=== PATIENT | male | born 2000 | race Caucasian/White ===

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

== ENCOUNTER 2019-04-30 21:01 | Emergency (ER) | payer MEDICAID, OTHER ==
[~2019-04-30] VITALS: Ht 172.7 cm; Wt 104.3 kg
--- NOTE | 2019-04-30 21:56 | NUR ---
BIBMOTHER. R ANKLE AND LOWER LEG PAIN WHILE PLAYING BASKETBALL. ANOTHER PLAYER LANDED ON LEG. PT STATES PAIN OF 4/10. REPORTS BEING ABLE TO PUT SOME PRESSURE, BUT DIFFICULTY WALKING. NO ACUTE DISTRESS NOTED. FAMILY AT BEDSIDE. READY FORE SELENE.
--- NOTE | 2019-04-30 22:07 | NUR ---
XRAY AT BEDSIDE
[2019-04-30] MEDS ORDERED: IBUPROFEN 400 MG TABLET ONE (22:20)
[2019-04-30] MEDS ORDERED: IBUPROFEN 400 MG TABLET PO ONE (22:30)
--- NOTE | 2019-04-30 23:45 | NUR ---
Patient discharged to home in stable condition. Written and verbal after care instructions given. Patient verbalizes understanding of instruction.
[2019-04-30 23:50] VITALS: BP 110/91
== END 2019-04-30 23:51 | disposition home or self-care (01) ==
LOC: ER 21:08
DX: S93.491A Sprain of other ligament of right ankle, initial encounter (principal); F84.0 Autistic disorder; G40.909 Epilepsy, unspecified, not intractable, without status epilepticus; W18.39XA Other fall on same level, initial encounter; Y93.67 Activity, basketball; Y92.89 Other specified places as the place of occurrence of the external cause; Y99.8 Other external cause status
CPT/HCPCS: 73610-TC

== ENCOUNTER 2019-06-25 17:53 | Emergency (ER) | payer OTHER, MEDICAID ==
[~2019-06-25] VITALS: Ht 180.3 cm; Wt 95.7 kg
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
--- NOTE | 2019-06-25 18:43 | NUR ---
WOUND CARE IN PROGRESS ON RT HAND. PT IS MEDICALLY CLEARED FOR BOOKING.
--- NOTE | 2019-06-25 18:44 | NUR ---
Patient discharged to [facility] in stable condition. Written and verbal after care instructions given. Patient verbalizes understanding of instruction. PT AMBULATED OUT WITH A STEADY GAIT.
--- NOTE | 2019-06-25 18:53 | NUR ---
PT AMBULATED OUT WITH A STEADY GAIT. PT IS IN HANDCUFFS.
[2019-06-25 19:00] VITALS: BP 118/74
== END 2019-06-25 19:00 ==
LOC: ER 17:58
DX: S30.850A Superficial foreign body of lower back and pelvis, initial encounter (principal); S60.221A Contusion of right hand, initial encounter; G40.909 Epilepsy, unspecified, not intractable, without status epilepticus; F32.9 Major depressive disorder, single episode, unspecified; Z88.8 Allergy status to other drugs, medicaments and biological substances; W45.8XXA Other foreign body or object entering through skin, initial encounter; Y93.89 Activity, other specified; Y92.89 Other specified places as the place of occurrence of the external cause; Y99.8 Other external cause status
CPT/HCPCS: 10120; 73130; 99284; A6403

== ENCOUNTER 2021-01-25 22:48 | Emergency (ER) | payer MEDICAID, OTHER ==
[~2021-01-25] VITALS: Ht 172.7 cm; Wt 99.8 kg
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
[2021-01-25] MEDS ORDERED: IBUPROFEN 400 MG TABLET ONE (23:19)
--- NOTE | 2021-01-25 23:22 | NUR ---
XRAY AT BEDSIDE
[2021-01-25] MEDS ORDERED: IBUPROFEN 400 MG TABLET PO ONE (23:30)
--- NOTE | 2021-01-25 23:40 | NUR ---
Patient discharged to home in stable condition. Written and verbal after care instructions given. Patient verbalizes understanding of instruction. Lft knee wrapped with CAROLE bandage. pt ambulatory with a steady gait
[2021-01-25 23:49] VITALS: BP 140/75
== END 2021-01-25 23:44 | disposition home or self-care (01) ==
LOC: ER 22:52
DX: S83.8X2A Sprain of other specified parts of left knee, initial encounter (principal); G40.909 Epilepsy, unspecified, not intractable, without status epilepticus; F32.9 Major depressive disorder, single episode, unspecified; Z88.8 Allergy status to other drugs, medicaments and biological substances; W18.39XA Other fall on same level, initial encounter; Y93.89 Activity, other specified; Y92.39 Other specified sports and athletic area as the place of occurrence of the external cause; Y99.8 Other external cause status
CPT/HCPCS: 73564-TC

== ENCOUNTER 2021-09-03 22:25 | Emergency (ER) | payer OTHER ==
[~2021-09-03] VITALS: Ht 175.3 cm; Wt 111.1 kg
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
[2021-09-03] MEDS ORDERED: KETOROLAC TROMETHAMINE INJ 30 MG/ML VIAL IM ONE (23:00)
[2021-09-03] MEDS ORDERED: KETOROLAC TROMETHAMINE INJ 30 MG/ML VIAL ONE (23:03)
--- NOTE | 2021-09-03 23:03 | NUR ---
DR. LAW OWENS AT PT'S BEDSIDE
[2021-09-03] MEDS ORDERED: LIDOCAINE 1%-EPI 1:100,000 20 ML VIAL ONE ×2 (23:10→23:47)
--- NOTE | 2021-09-03 23:59 | NUR ---
DR. LAW OWENS AT PT'S BEDSIDE FOR WOUND CARE
[2021-09-04] MEDS ORDERED: CLIN300C12 PO (00:15)
[2021-09-04 00:25] VITALS: BP 135/75
--- NOTE | 2021-09-04 00:26 | NUR ---
Patient discharged to home in stable condition. RX Written and verbal after care instructions given. Patient verbalizes understanding of instruction. IV removed. Catheter intact and site benign. Pressure and 4x4 applied to site. No bleeding noted.
== END 2021-09-04 00:26 | disposition home or self-care (01) ==
LOC: ER 22:30
DX: L02.212 Cutaneous abscess of back [any part, except buttock and flank] (principal); G40.909 Epilepsy, unspecified, not intractable, without status epilepticus; F32.A Depression, unspecified; F84.0 Autistic disorder; Z88.8 Allergy status to other drugs, medicaments and biological substances
CPT/HCPCS: 10060; 96372; 99284; A6403; A6407; J1885; J3490 ×2

== ENCOUNTER 2021-09-06 20:47 | Emergency (ER) | payer OTHER ==
[~2021-09-06] VITALS: Ht 172.7 cm; Wt 108.9 kg
[~2021-09-06 20:47] MED LIST: CLIN300C12 PO
[2021-09-06 20:58] VITALS: BP 141/92
--- NOTE | 2021-09-06 21:37 | NUR ---
Patient discharged to home in stable condition. Written and verbal after care instructions given. Patient verbalizes understanding of instruction.
== END 2021-09-06 21:39 | disposition home or self-care (01) ==
LOC: ER 20:53
DX: Z48.00 Encounter for change or removal of nonsurgical wound dressing (principal); F32.A Depression, unspecified; Z86.69 Personal history of other diseases of the nervous system and sense organs; Z87.19 Personal history of other diseases of the digestive system; Z88.8 Allergy status to other drugs, medicaments and biological substances; Z79.899 Other long term (current) drug therapy

== ENCOUNTER 2022-01-05 14:29 | Emergency (ER) | payer OTHER ==
[~2022-01-05] VITALS: Ht 172.7 cm; Wt 108.9 kg
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
--- NOTE | 2022-01-05 15:13 | NUR ---
CONTACTED SURGERY DR. SANTOS TO CALL US BACK.
--- NOTE | 2022-01-05 15:45 | NUR ---
BLOOD DRAWN AND TO LAB
[2022-01-05 16:13] LABS: BASOPHILS # (AUTO) 0.1 K/uL (0.0-0.2); BASOPHILS % (AUTO) 0.5 % (0.0-2.0); EOSINOPHILS % (AUTO) 0.7 % (0.0-6.0); HEMATOCRIT 45 % (39-51); HEMOGLOBIN 15.4 g/dL (13.5-17.5); LYMPHOCYTES # (AUTO) 2.2 K/uL (0.8-4.8); LYMPHOCYTES % (AUTO) 23.2 % (20.0-44.0); MEAN CORPUSCULAR HGB CONC 34 g/dl (31.0-36.0); MEAN CORPUSCULAR VOLUME 87 fL (80-96); MONOCYTES # (AUTO) 0.6 K/uL (0.1-1.30); MONOCYTES % (AUTO) 6.4 % (2.0-12.0); NEUTROPHILS # (AUTO) 6.7 K/uL (1.8-8.9); NEUTROPHILS % (AUTO) 69.2 % (43.0-81.0); PLATELET COUNT (AUTO) 249 K/uL (150-450); RED BLOOD CELL COUNT(AUTO) 5.19 MIL/uL (4.5-6.0); WHITE BLOOD COUNT (AUTO) 9.7 K/uL (4.3-11.0)
[2022-01-05] MEDS ORDERED: IV NS 0.9% 250 ML IV ONE (16:15)
[2022-01-05] MEDS ORDERED: IOHEXOL-300 100 ML VIAL IV ONE (16:15)
[2022-01-05 16:20] LABS: CALCIUM, SERUM 9.2 mg/dL (8.5-10.1); POTASSIUM 4.3 mmol/L (3.5-5.1)
[2022-01-05] MEDS ORDERED: LIDOCAINE 1% INJ 50 ML MDV IJ ONE (17:05)
[2022-01-05] MEDS ORDERED: AMOX/CLAVULANATE 875 MG TABLET PO ONE (17:30)
--- NOTE | 2022-01-05 17:30 | NUR ---
I&D DONE BY DR GILBERT WITH LIDOCAIN 1%
[2022-01-05] MEDS ORDERED: AMOX/CLAVULANATE 875 MG TABLET ONE (17:39)
[2022-01-05] MEDS ORDERED: AMOX-430 PO (17:46)
--- NOTE | 2022-01-05 18:00 | NUR ---
Patient discharged to home in stable condition. Written and verbal after care instructions given. Patient verbalizes understanding of instruction.
[2022-01-05 19:18] VITALS: BP 120/70
== END 2022-01-05 18:00 | disposition home or self-care (01) ==
LOC: ER 14:30
DX: L05.01 Pilonidal cyst with abscess (principal); K50.90 Crohn's disease, unspecified, without complications; F32.A Depression, unspecified; Z86.69 Personal history of other diseases of the nervous system and sense organs; Z88.8 Allergy status to other drugs, medicaments and biological substances
CPT/HCPCS: 10080; 99285; 74177; 85025; 80048; 36415; J3490; J7050; A6407; Q9967

== ENCOUNTER 2022-06-04 18:07 | Emergency (ER) | payer OTHER ==
[~2022-06-04] VITALS: Ht 172.7 cm; Wt 119.3 kg
[~2022-06-04 18:07] MED LIST changes: +AMOX-430 PO
[2022-06-04 18:46] VITALS: BP 126/73
--- NOTE | 2022-06-04 19:44 | NUR ---
Patient discharged to home in stable condition. Written and verbal after care instructions given. Patient verbalizes understanding of instruction.
== END 2022-06-04 20:17 | disposition home or self-care (01) ==
LOC: ER 18:12
DX: R07.89 Other chest pain (principal); R09.1 Pleurisy; F32.A Depression, unspecified; Z88.8 Allergy status to other drugs, medicaments and biological substances
CPT/HCPCS: 71045-TC

== ENCOUNTER 2022-12-15 18:23 | Emergency (ER) | payer OTHER ==
[~2022-12-15] VITALS: Ht 172.7 cm; Wt 79.4 kg
[~2022-12-15 18:23] MED LIST changes: +ACET-2605 PO
[2022-12-15 20:04] VITALS: BP 125/78; TEMP 98.3; O2SAT 98
== END 2022-12-15 20:00 | disposition home or self-care (01) ==
LOC: ER 18:23
DX: L05.01 Pilonidal cyst with abscess (principal); Z88.8 Allergy status to other drugs, medicaments and biological substances
CPT/HCPCS: 99282; A6403; A6407

== ENCOUNTER 2023-03-06 21:15 | Emergency (ER) | payer OTHER ==
[~2023-03-06] VITALS: Ht 172.7 cm; Wt 102.1 kg
[2023-03-06 21:51] VITALS: TEMP 98.5
[2023-03-06 23:10] LABS: BASOPHILS # (AUTO) 0.1 K/uL (0.0-0.2); BASOPHILS % (AUTO) 0.6 % (0.0-2.0); EOSINOPHILS # (AUTO) 0.1 K/uL (0.0-0.7); EOSINOPHILS % (AUTO) 0.8 % (0.0-6.0); HEMATOCRIT 48 % (39-51); HEMOGLOBIN 16.2 g/dL (13.5-17.5); LYMPHOCYTES # (AUTO) 2.3 K/uL (0.8-4.8); LYMPHOCYTES % (AUTO) 21.7 % (20.0-44.0); MEAN CORPUSCULAR HEMOGLOBIN 29 PG (26.0-33.0); MEAN CORPUSCULAR HGB CONC 34 g/dl (31.0-36.0); MEAN CORPUSCULAR VOLUME 86 fL (80-96); MONOCYTES # (AUTO) 0.6 K/uL (0.1-1.30); NEUTROPHILS # (AUTO) 7.6 K/uL (1.8-8.9); NEUTROPHILS % (AUTO) 70.9 % (43.0-81.0); PLATELET COUNT (AUTO) 278 K/uL (150-450); RED BLOOD CELL COUNT(AUTO) 5.58 MIL/uL (4.5-6.0); RED CELL DISTRIBUTION WIDTH 13.2 % (11.5-15.0); WHITE BLOOD COUNT (AUTO) 10.7 K/uL (4.3-11.0)
[2023-03-06 23:25] LABS: CALCIUM, SERUM 9.3 mg/dL (8.5-10.1); POTASSIUM 3.9 mmol/L (3.5-5.1)
[2023-03-06 23:39] LABS: ALBUMIN 3.9 g/dL (3.4-5.0); BILIRUBIN,TOTAL 0.4 mg/dL (0.2-1.0); TOTAL PROTEIN, SERUM 7.9 g/dL (6.4-8.2)
[2023-03-07 02:12] VITALS: BP 129/84; O2SAT 95
== END 2023-03-07 02:13 | disposition home or self-care (01) ==
LOC: ER 21:20
DX: R73.9 Hyperglycemia, unspecified (principal); Z88.8 Allergy status to other drugs, medicaments and biological substances; R07.9 Chest pain, unspecified; R10.9 Unspecified abdominal pain
CPT/HCPCS: 36415; 71045-TC; 80053-TC; 83880; 84484-TC; 85025-TC

== ENCOUNTER 2024-08-23 02:04 | Emergency (ER) | payer OTHER ==
[~2024-08-23] VITALS: Ht 172.7 cm; Wt 95.3 kg
[2024-08-23] MEDS ORDERED: KETOROLAC TROMETHAMINE INJ 30 MG/ML VIAL ONE (02:57)
[2024-08-23] MEDS ORDERED: oxyCODONE/APAP (5/325 MG) 1 UDTAB TABLET ONE (02:57)
[2024-08-23] MEDS: oxyCODONE/APAP (5/325 MG) 1 UDTAB TABLET PO ONE (03:02)
[2024-08-23] MEDS: KETOROLAC TROMETHAMINE INJ 30 MG/ML VIAL IM ONE (03:02)
[2024-08-23] MEDS ORDERED: AMOX500C2 PO (04:17)
[2024-08-23] MEDS ORDERED: OXYC-128 PO (04:17)
[2024-08-23] MEDS: AMOXICILLIN TRIHYDRATE 500 MG CAPSULE PO ONE (04:22)
[2024-08-23] MEDS ORDERED: AMOXICILLIN TRIHYDRATE 250 MG CAPSULE ONE (04:24)
[2024-08-23 04:27] VITALS: BP 139/80; TEMP 98; O2SAT 98
== END 2024-08-23 04:28 | disposition home or self-care (01) ==
LOC: ER 02:08
DX: K08.89 Other specified disorders of teeth and supporting structures (principal); K50.90 Crohn's disease, unspecified, without complications; G40.909 Epilepsy, unspecified, not intractable, without status epilepticus; F84.0 Autistic disorder; Z88.5 Allergy status to narcotic agent; Z79.899 Other long term (current) drug therapy
CPT/HCPCS: 99283; 96372; J1885